=== PATIENT | male | born 1955 | race Caucasian/White ===

== ENCOUNTER 2021-07-29 14:08 | Outpatient (CLI) | payer MEDICARE, SELFPAY ==
--- NOTE | 2021-07-29 14:18 | CT_ITS ---
WS: [id number] CT CHEST WITH INTRAVENOUS CONTRAST HISTORY: ATRIAL FIBRILLATION/CHEST PAIN TECHNIQUE: Contiguous 5 mm axial imaging performed on the thorax. Coronal and sagittal reformats are submitted. All CT scans at [facility] use at least one of these dose optimization techniques: automated exposure control; mA and/or kV adjustment per patient size (includes targeted exams where dose is matched to clinical indication); or iterative reconstruction. CONTRAST: Omnipaque 300; 95 mL IV. DLP: 807.29 mGy.cm COMPARISON: 09/17/2017 Lungs and central airway: Lungs are hyperexpanded. Mild interstitial thickening in the periphery of b oth lungs. There are a few scattered pulmonary nodules. These nodules range in size from 2 to 5 mm. L argest in the periphery of the LEFT upper lobe, image 29 of series 4. Pleura: Normal. No pleural effusion. Heart and pericardium: Mildly enlarged LEFT heart chambers. No pericardial effusion. Mediastinum and eros: RIGHT hilar lymph node measures 13 mm. No change since 2018. Vessels: Mild atherosclerosis of aorta. Normal size pulmonary artery. Chest wall and lower neck: No soft tissue masses. Upper abdomen: Large hiatal hernia. Marked atrophy and nodularity involving the superior aspect of ea ch kidney. There is cortical thinning with multiple small acquired cysts. No adrenal mass. Low-attenu ation nodules in the RIGHT lobe of the liver. This are probably cysts. Cannot be further characterize d. Gallbladder is very slightly contracted. Osseous structures: Moderate thoracic spondylitic changes. No fractures or destructive bone lesions. CT/CT chest w con* [id number] IMPRESSION: 1. Chronic emphysema with numerous subcentimeter nodules throughout both lungs . Recommend follow-up chest CT in 3 months to evaluate for stability. Majority of these nodules are new since 2018. 2. No adenopathy. 3. Mild LEFT heart enlargement. 4. Large hiatal hernia. 5. Marked cortical thinning and small cortical cysts upper poles of each destiny wray.
[2021-07-29 15:16] LABS: Blood Urea Nitrogen 14 mg/dL (8-23); Glomerular Filtration Rate 60.8 mL/min (90-130)
[2021-07-29] MEDS: iohexol 300 mg/mL 100 mL Btl IV (15:17)
== END 2021-07-29 14:09 | disposition home or self-care (01) ==
PROVIDERS: PCP Internal Medicine; Visit Provider Nurse Practitioner
DX: R06.00 Dyspnea, unspecified (principal); I48.91 Unspecified atrial fibrillation; J43.9 Emphysema, unspecified; R91.8 Other nonspecific abnormal finding of lung field; I51.7 Cardiomegaly; K44.9 Diaphragmatic hernia without obstruction or gangrene; Q61.02 Congenital multiple renal cysts
CPT/HCPCS: 71260; 82565; 84520

== ENCOUNTER 2021-07-29 20:00 | Outpatient (CLI) | payer MEDICARE, SELFPAY | END 2021-07-29 20:01 | disposition home or self-care (01) | LOC: SLEEP 07-30 06:52 | PROVIDERS: PCP Internal Medicine; Visit Provider Nurse Practitioner | DX: R40.0 Somnolence (principal); R06.83 Snoring; R53.83 Other fatigue | CPT/HCPCS: 95810 ==

== ENCOUNTER → 2021-08-14 13:38 | Outpatient (BNVA) | payer MEDICARE, SELFPAY | PROVIDERS: PCP Internal Medicine; Visit Provider Internal Medicine Critical Care Medicine | DX: I26.99 Other pulmonary embolism without acute cor pulmonale (principal); J43.9 Emphysema, unspecified; F17.210 Nicotine dependence, cigarettes, uncomplicated; R91.1 Solitary pulmonary nodule; K21.9 Gastro-esophageal reflux disease without esophagitis; I10 Essential (primary) hypertension; R05.3 Chronic cough | CPT/HCPCS: 99204 ==

== ENCOUNTER → 2021-09-03 13:26 | Outpatient (BNVA) | payer MEDICARE, SELFPAY | PROVIDERS: PCP Internal Medicine; Visit Provider Internal Medicine | DX: I10 Essential (primary) hypertension (principal); I48.91 Unspecified atrial fibrillation; J43.9 Emphysema, unspecified; K21.9 Gastro-esophageal reflux disease without esophagitis; I26.09 Other pulmonary embolism with acute cor pulmonale; Z79.01 Long term (current) use of anticoagulants; F17.210 Nicotine dependence, cigarettes, uncomplicated | CPT/HCPCS: 99204 ==

== ENCOUNTER → 2021-11-03 12:15 | Outpatient (BNVA) | payer MEDICARE, SELFPAY | PROVIDERS: PCP Internal Medicine; Visit Provider Internal Medicine Critical Care Medicine | DX: R91.1 Solitary pulmonary nodule (principal); I26.99 Other pulmonary embolism without acute cor pulmonale; J43.9 Emphysema, unspecified; F17.210 Nicotine dependence, cigarettes, uncomplicated | CPT/HCPCS: 99214 ==

== ENCOUNTER 2021-12-03 12:31 | Outpatient (CLI) | payer MEDICARE, SELFPAY ==
--- NOTE | 2021-12-03 13:30 | CT_ITS ---
WS: [id number] CT CHEST WITHOUT INTRAVENOUS CONTRAST HISTORY: Pulmonary nodule TECHNIQUE: Contiguous 5 mm axial imaging performed on the thorax. Coronal and sagittal reformats are submitted. All CT scans at [facility] use at least one of these dose optimization techniques: automated exposure control; mA and/or kV adjustment per patient size (includes targeted exams where dose is matched to clinical indication); or iterative reconstruction. CONTRAST: None DLP: 774.91 mGy.cm COMPARISON: 07/29/2021 and 06/19/2016 Lungs and central airway: The largest nodule in the LEFT lower lobe has resolved. There is a smaller nodule near the LEFT fissure which is unchanged measuring 3 mm. Small nodules noted in the RIGHT uppe r lobe on the prior study are not apparent today. No new or increasing size of any nodule. There is m ild peripheral interstitial thickening which is stable. Chronic emphysema. Pleura: Normal. No pleural effusion. Heart and pericardium: Mild cardiomegaly. No pericardial effusion. Coronary artery calcifications. Mediastinum and eros: Small mediastinal and hilar lymph nodes. Numerous lymph nodes without increase in size. Vessels: No aneurysm. Mild atherosclerosis aorta. Pulmonary artery size is normal. Scattered coronary artery calcifications. Chest wall and lower neck: No soft tissue masses. Upper abdomen: Large hiatal hernia. Mild perinephric stranding. No adrenal mass. 11 mm low-attenuatio n lesion in the posterior RIGHT lobe of the liver is stable. Osseous structures: Thoracic spondylosis. CT/CT chest wo con [id number] IMPRESSION: 1. Several of the previously described pulmonary subcentimeter nodules have re solved. The remaining nodules are stable since 2018. No pneumonia. These were p robably postinflammatory nodules seen on the prior study. 2. Large hiatal hernia. 3. No adenopathy.
== END 2021-12-03 12:32 | disposition home or self-care (01) ==
PROVIDERS: PCP Internal Medicine; Visit Provider Internal Medicine Critical Care Medicine
DX: R91.1 Solitary pulmonary nodule (principal); K44.9 Diaphragmatic hernia without obstruction or gangrene
CPT/HCPCS: 71250

== ENCOUNTER 2021-12-03 12:32 | Outpatient (CLI) | payer MEDICARE, SELFPAY ==
--- NOTE | 2021-12-03 12:45 | USCV_ITS ---
Mohit Mitchell Age: 66 Gender: M : 1955 Exam Date: 12/03/2021 13:17 Ordering Phys: Nasir Krueger M.D ([email or web address]) Technologist: Krys Sears Exam Location: [facility] Indication: Afib BP: / HR: 63 Rhythm: Sinus Technical Quality: Adequate MEASUREMENTS (Male / Female) Normal Values 2D ECHO LV Diastolic Diameter PLAX 4.0 cm 4.2 - 5.9 / 3.9 - 5.3 cm LV Systolic Diameter PLAX 2.9 cm LV Chamber Size 3.6 cm IVS Diastolic Thickness 1.3 cm 0.6 - 1.0 / 0.6 - 0.9 cm IVS Systolic Thickness 1.6 cm LVPW Diastolic Thickness 1.4 cm 0.6 - 1.0 / 0.6 - 0.9 cm LVPW Systolic Thickness 1.7 cm RV Chamber Size 3.7 cm LVOT Diameter 2.1 cm LV Ejection Fraction 2D Teich 51.7 % LV Ejection Fraction MOD 2C 50.0 % LV Ejection Fraction 2C AL 50.2 % LA Diameter 4.0 cm LA Width 3.6 cm LA Height 5.4 cm RA Width 3.9 cm RA Height 4.7 cm Aorta at Sinotubular Diameter 3.2 cm IVC Diameter 2.2 cm M-MODE Aortic Annulus Diameter 3.7 cm LA Ao Ratio MM 1.4 MV E Point Septal Separation 0.5 cm DOPPLER AV Peak Velocity 141.7 cm/s LVOT Peak Velocity 97.0 cm/s AV Area Cont Eq vti 2.4 cm squared AV Area Cont Eq pk 2.3 cm squared MV Area PHT 3.2 cm squared Mitral E to A Ratio 0.9 MV E' Velocity 51.5 cm/s Mitral E to MV E' Ratio 12.1 Mitral E to LV E' Lateral Ratio 11.0 Mitral E to LV E' Septal Ratio 13.6 TR Peak Velocity 264.9 cm/s TR Peak Gradient 28.1 mmHg TR Mean Velocity 237.3 cm/s TR Mean Gradient 23.1 mmHg TR Velocity Time Integral 89.0 cm TV Peak E Velocity 54.0 cm/s Right Atrial Pressure 3.0 mmHg Pulmonary Artery Systolic Pressu 31.1 mmHg PV Peak Velocity 74.0 cm/s RV Acceleration Time 0.1 s RV Ejection Time 0.4 s RV AcT/ET 0.3 FINDINGS Left Ventricle Left ventricle is normal in size. LV systolic function is normal with EF of 55 to 60%. No regional wall motion abnormalities are seen. Moderate left ventricular hypertrophy. Grade 1 diastolic dysfunction seen. Right Ventricle Normal in size and function. Right Atrium Normal in size Left Atrium Left atrium is dilated. Mitral Valve Mild mitral annular calcification. Mild mitral regurgitation. Aortic Valve Aortic valve is thickened. Mild aortic regurgitation. No significant stenosis. Tricuspid Valve Mild tricuspid regurgitation. Insufficient TR jet to calculate RVSP. Pulmonic Valve Not well-visualized Pericardium Normal Aorta Normal in size IVC CONCLUSIONS LV systolic function is normal with EF 55 to 60%. Moderate left ventricular hypertrophy. Grade 1 diastolic dysfunction Mild mitral annular calcification seen. Mild mitral regurgitation. Aortic valve is thickened. Mild aortic regurgitation. Mild tricuspid regurgitation. Compared to prior echocardiogram from 09/18/2017, no significant change is seen Nasir Krueger MD (Electronically Signed) Final Date: 13 December 2021 21:18 S
== END 2021-12-03 12:33 | disposition home or self-care (01) ==
PROVIDERS: PCP Internal Medicine; Visit Provider Internal Medicine
DX: R06.00 Dyspnea, unspecified (principal); I48.91 Unspecified atrial fibrillation; I08.3 Combined rheumatic disorders of mitral, aortic and tricuspid valves; R91.1 Solitary pulmonary nodule; K44.9 Diaphragmatic hernia without obstruction or gangrene
CPT/HCPCS: 71250; 93306

== ENCOUNTER 2021-12-10 08:53 | Outpatient (CLI) | payer MEDICARE, SELFPAY ==
--- NOTE | 2021-12-10 12:47 | PFTS_ITS ---
Date of Study:12/10/21 Date of Dictation: MECHANICS: Forced vital capacity (FVC) is normal. Forced expiratory volume in one second (FEV1) is reduced. FEV1/FVC is normal. FLOW VOLUME LOOP: Reduced flow at all lung volumes with mild scooping. LUNG VOLUMES: Total lung capacity (TLC) is normal. Residual volume (RV) is increased. DIFFUSING CAPACITY FOR CARBON MONOXIDE: Mild reduced. INTERPRETATION: The postbronchodilator spirometry is likely consistent with mild airflow obstruction. Although, the FEV1 FVC ratio is preserved. The flow-volume loop is suggestive of small airways disease. Lung volumes are consistent with air trapping. Gas exchange (DLCO) is mildly reduced. MTDD
== END 2021-12-10 08:54 | disposition home or self-care (01) ==
LOC: RT 08:54
PROVIDERS: PCP Internal Medicine; Visit Provider Internal Medicine Critical Care Medicine
DX: J43.9 Emphysema, unspecified (principal)
CPT/HCPCS: 94060; 94726; 94729; J7611

== ENCOUNTER → 2022-05-18 10:17 | Outpatient (BNVA) | payer MEDICARE, SELFPAY | PROVIDERS: PCP Nurse Practitioner Family; Visit Provider Nurse Practitioner Family | DX: I10 Essential (primary) hypertension (principal) | CPT/HCPCS: 80048 ==

== ENCOUNTER → 2023-03-11 17:15 | Outpatient (BNVA) | payer MEDICARE, SELFPAY | PROVIDERS: PCP Nurse Practitioner Family; Visit Provider Nurse Practitioner Family | DX: I10 Essential (primary) hypertension (principal) | CPT/HCPCS: 80053; 80061; 84443; 85025 ==

== ENCOUNTER → 2023-09-14 14:43 | Outpatient (BNVA) | payer MEDICARE, SELFPAY | PROVIDERS: PCP Nurse Practitioner Family; Visit Provider Nurse Practitioner Family | DX: R10.9 Unspecified abdominal pain (principal) | CPT/HCPCS: 81000 ==

== ENCOUNTER 2023-09-16 15:34 | Outpatient (CLI) | payer MEDICARE, SELFPAY ==
--- NOTE | 2023-09-16 15:36 | XR_ITS ---
WS: [id number] KUB, AP view, 09/16/2023 Clinical Data: R10.9 - Unspecified abdominal pain Comparison: Acute abdomen series, 08/24/2015 Findings: No abnormal intraabdominal masses or calcifications are seen. There is no dilatated small bowel or ev idence of obstruction. There is a moderate amount of fecal material in the colon. There is degenerative change of the lumbar vertebral bodies. XR/XR abdomen 1V* [id number] Impression: Moderate amount of fecal material in the colon.
== END 2023-09-16 15:35 | disposition home or self-care (01) ==
LOC: RAD 15:35
PROVIDERS: PCP Nurse Practitioner Family; Visit Provider Nurse Practitioner Family
DX: R10.9 Unspecified abdominal pain (principal); M47.816 Spondylosis without myelopathy or radiculopathy, lumbar region
CPT/HCPCS: 74018

== ENCOUNTER → 2023-12-24 15:19 | Outpatient (BNVA) | payer MEDICARE, SELFPAY | PROVIDERS: PCP Nurse Practitioner Family; Visit Provider Nurse Practitioner Family | DX: R68.89 Other general symptoms and signs (principal) | CPT/HCPCS: 87426 ==

== ENCOUNTER → 2024-04-10 10:00 | Outpatient (BNVA) | payer MEDICARE, SELFPAY | PROVIDERS: PCP Nurse Practitioner Family; Visit Provider Nurse Practitioner Family | DX: I10 Essential (primary) hypertension | CPT/HCPCS: 80053; 80061 ==

== ENCOUNTER 2024-04-24 10:09 | Outpatient (CLI) | payer MEDICARE, SELFPAY ==
--- NOTE | 2024-04-24 10:00 | CT_ITS ---
WS: [id number] LDCT LUNG CANCER SCREENING HISTORY: Z87.891 - Personal history of nicotine dependence TECHNIQUE: Axial imaging performed from the apices to 1 cm below the costophrenic angles. Coronal and sagittal reformats are submitted with axial MIP series. All CT scans at [facility] use at least one of these dose optimization techniques: automated exposure control; mA and/or kV adjustment per patient size (includes targeted exams where dose is matched to clinical indication); or iterativ e reconstruction. DLP: 82.71 mGy.cm DIvol: Mean CTDIvol: 1.70 (mGy) COMPARISON: 07/29/2021, 12/03/2021 Diagnostic quality: Satisfactory Lungs: Hyperinflated lungs with emphysema. Numerous new, bilateral and multilobar nodules and reticul ar nodular opacifications are identified. The largest reticular nodular opacification RIGHT lower lob e. Branching of the opacification may indicate bronchial involvement. This may be an area of pneumoni a or pneumonitis. Additional scattered subcentimeter nodules and subsolid nodules in the periphery of the upper and lower lung fry. No endobronchial lesions. Heart: Normal size heart with no pericardial effusion.. Other findings: Heavy calcification in the [place] coronary arteries. Mild atherosclerosis aorta. RIGH T paratracheal lymph node measures 14 mm and has slightly increased in size. Large hiatal hernia. 8 m m low-attenuation nodule in the RIGHT lobe of the liver. No adrenal mass. CT/CT lung screening [id number] IMPRESSION: LUNG-RADS: 4A-Probably Suspicious FOLLOW UP: 3 Month LDCT OTHER FINDINGS (S MODIFIER): None. Multiple new nodules with a reticular nodular opacification in the RIGHT lower lobe. This reticular nodular opacification may be pneumonia or pneumonitis. Rec ommend 3-month follow-up after appropriate treatment.
== END 2024-04-24 10:10 | disposition home or self-care (01) ==
LOC: RAD 10:10
PROVIDERS: PCP Nurse Practitioner Family; Visit Provider Nurse Practitioner Family
DX: Z12.2 Encounter for screening for malignant neoplasm of respiratory organs (principal); Z87.891 Personal history of nicotine dependence; R91.8 Other nonspecific abnormal finding of lung field; J43.9 Emphysema, unspecified; I25.10 Atherosclerotic heart disease of native coronary artery without angina pectoris; I70.0 Atherosclerosis of aorta; K44.9 Diaphragmatic hernia without obstruction or gangrene; R59.0 Localized enlarged lymph nodes
CPT/HCPCS: 71271

== ENCOUNTER → 2024-06-06 11:26 | Outpatient (BNVA) | payer MEDICARE, SELFPAY | PROVIDERS: PCP Nurse Practitioner Family; Visit Provider Anesthesiology Pain Medicine | DX: G89.29 Other chronic pain (principal); M47.816 Spondylosis without myelopathy or radiculopathy, lumbar region; M54.41 Lumbago with sciatica, right side | CPT/HCPCS: 72110; 99204 ==

== ENCOUNTER → 2024-06-21 14:02 | Outpatient (BNVA) | payer MEDICARE, SELFPAY | PROVIDERS: PCP Nurse Practitioner Family; Visit Provider Anesthesiology Pain Medicine | DX: M47.816 Spondylosis without myelopathy or radiculopathy, lumbar region (principal); M54.41 Lumbago with sciatica, right side; G89.29 Other chronic pain; M54.9 Dorsalgia, unspecified | CPT/HCPCS: 64493; 64494; 64495; J3490 ==

== ENCOUNTER → 2024-06-27 08:29 | Outpatient (BNVA) | payer MEDICARE, SELFPAY | PROVIDERS: PCP Nurse Practitioner Family; Visit Provider Nurse Practitioner Family | DX: M54.41 Lumbago with sciatica, right side (principal); G89.29 Other chronic pain; M47.816 Spondylosis without myelopathy or radiculopathy, lumbar region; Z87.891 Personal history of nicotine dependence | CPT/HCPCS: 99213 ==

== ENCOUNTER → 2024-07-18 13:26 | Outpatient (BNVA) | payer MEDICARE, SELFPAY | PROVIDERS: PCP Nurse Practitioner Family; Visit Provider Anesthesiology Pain Medicine | DX: M47.816 Spondylosis without myelopathy or radiculopathy, lumbar region (principal); M54.9 Dorsalgia, unspecified; M54.41 Lumbago with sciatica, right side; G89.29 Other chronic pain; Z87.891 Personal history of nicotine dependence | CPT/HCPCS: 64635; 64636; J1010; J9999 ==

== ENCOUNTER 2024-07-25 15:52 | Outpatient (CLI) | payer MEDICARE, SELFPAY ==
--- NOTE | 2024-07-25 15:45 | CT_ITS ---
WS: [id number] CT chest w con* [id number] HISTORY: R91.1 - Solitary pulmonary nodule TECHNIQUE: Axial imaging performed through the thorax. Coronal and sagittal reformats are submitted. All CT scans at [facility] use at least one of these dose optimization techniques: automated exposure control; mA and/or kV adjustment per patient size (includes targeted exams where dose is matched to clinical indication); or iterative reconstruction. CONTRAST: Omnipaque 350; 100 mL IV. DLP: 536.77 mGy.cm COMPARISON: 04/24/2024, 12/03/2021 Lungs and central airway: Pulmonary hyperexpansion. Mild peripheral interstitial thickening. Much improved aeration. Previously described reticular nodular opacifications and subsegmental consolidations have resolved. There is a benign calcified granuloma RIGHT lower lobe. Pleura: Normal. No pleural effusion. Heart and pericardium: Enlarged LEFT heart. Most significant enlargement of the LEFT atrium. Mediastinum and eros: Mildly prominent RIGHT hilar lymph node at 1.3 cm. Inferior RIGHT paratracheal lymph node is 1.1 cm. Lymph nodes have decreased in size since 04/24/2024. Vessels: Mild atherosclerosis aorta. No aneurysm. Normal size pulmonary artery. Chest wall and lower neck: No soft tissue masses. Upper abdomen: Large hiatal hernia. No adrenal mass. 11 mm low-attenuation nodule in the posterior RIGHT lobe of the liver. Stable since 04/24/2024. This may be a small cyst. Cortical thinning of the upper pole of each kidney with small acquired cortical cysts. Osseous structures: Mild thoracic spondylosis. CT/CT chest w con* [id number] IMPRESSION: 1. Interval resolution of the previously described reticular nodular opacifica tions seen on chest CT of 04/24/2024. No residual opacifications or suspicious mass/nodule. 2. A few small indeterminate lymph nodes persist but have decreased in size. 3. Chronic emphysema. 4. LEFT heart enlargement, most significant enlargement within the LEFT atrium . 5. Return to annual lung screening CT evaluation.
[2024-07-25 16:24] LABS: Blood Urea Nitrogen 15 mg/dL (8-23); Glomerular Filtration Rate 50.4 mL/min (90-130)
[2024-07-25] MEDS: iohexol 350 mg/mL 500 mL Btl (per mL) IV (16:39)
== END 2024-07-25 15:53 | disposition home or self-care (01) ==
PROVIDERS: PCP Nurse Practitioner Family; Visit Provider Nurse Practitioner Family
DX: R91.1 Solitary pulmonary nodule (principal); R59.0 Localized enlarged lymph nodes; J43.8 Other emphysema; I51.7 Cardiomegaly; R91.8 Other nonspecific abnormal finding of lung field; J84.10 Pulmonary fibrosis, unspecified; I70.0 Atherosclerosis of aorta; K44.9 Diaphragmatic hernia without obstruction or gangrene; R93.2 Abnormal findings on diagnostic imaging of liver and biliary tract; R93.421 Abnormal radiologic findings on diagnostic imaging of right kidney; R93.422 Abnormal radiologic findings on diagnostic imaging of left kidney; N28.1 Cyst of kidney, acquired
CPT/HCPCS: 71260; 82565; 84520

== ENCOUNTER → 2024-08-01 13:03 | Outpatient (BNVA) | payer MEDICARE, SELFPAY | PROVIDERS: PCP Nurse Practitioner Family; Visit Provider Anesthesiology Pain Medicine | DX: M47.816 Spondylosis without myelopathy or radiculopathy, lumbar region (principal); M54.9 Dorsalgia, unspecified; M54.31 Sciatica, right side; G89.29 Other chronic pain | CPT/HCPCS: 64635; 64636; J1010; J9999 ==

== ENCOUNTER → 2024-08-15 09:07 | Outpatient (BNVA) | payer MEDICARE, SELFPAY | PROVIDERS: PCP Nurse Practitioner Family; Visit Provider Nurse Practitioner Family | DX: M54.41 Lumbago with sciatica, right side (principal); G89.29 Other chronic pain; M47.816 Spondylosis without myelopathy or radiculopathy, lumbar region | CPT/HCPCS: 99213 ==

== ENCOUNTER → 2024-09-26 14:55 | Outpatient (BNVA) | payer MEDICARE, SELFPAY | PROVIDERS: PCP Nurse Practitioner Family; Visit Provider Nurse Practitioner Family | DX: M54.41 Lumbago with sciatica, right side (principal); G89.29 Other chronic pain; M47.816 Spondylosis without myelopathy or radiculopathy, lumbar region | CPT/HCPCS: 72072; 99214 ==

== ENCOUNTER → 2024-10-24 10:50 | Outpatient (BNVA) | payer MEDICARE, SELFPAY | PROVIDERS: PCP Nurse Practitioner Family; Visit Provider Nurse Practitioner Family | DX: M54.41 Lumbago with sciatica, right side (principal); G89.29 Other chronic pain; M47.816 Spondylosis without myelopathy or radiculopathy, lumbar region | CPT/HCPCS: 99214 ==

== ENCOUNTER 2024-10-30 11:09 | Emergency (ER) | payer MEDICARE, SELFPAY ==
--- OUTSIDE RECORDS SUMMARY | 2024-02-19 04:00 | XMS_ITS ---
Author Organization [facility] Address [address] [place] [address] Care Team Providers Care Sales Associate Fishing Name Role Phone Ekaterina Bird APRN Primary Care Provider Unavail able Sandrine Sanchez Unavailable [phone] MOMO WHEELER Unavailable Migration, Provider Unavailable Unavailable REASON FOR VISIT EMR-Yohannes Encounters Encounter Location Date Provider Diagnosis Migrated_Facility 0 0 02/19/2024 Provider Migration Plan Of Treatment Next Appt Details Provider Name:Momo Wheeler , 12/18/2024 09:45:00 AM, [address] [place] [address], [address], Progress Notes * Mohit MITCHELL LDOB:1955 (69 yo M)Acc No.[id number]:02/19/2024 Patient: Husam FITCHMohit :1955 A ge:68 Y S ex:Male Address:[address] [place] [id number] Subjective: * Chief Complaints: * E MR-Yohannes * Medical History: * Surgical History: * Hospitalization/Major Diagno stic Procedure: * Medications: Objective: * Vitals: * Physical Examination: Assessment: Plan: * Treatment: * Procedure Codes: * * Date:
--- OUTSIDE RECORDS SUMMARY | 2024-02-20 04:00 | XMS_ITS ---
Author Organization [facility] Address [address] [place] [address] Care Team Providers Care Rebeamer Name Role Phone Ekaterina Bird APRN Primary Care Provider Unavail able Sandrine Sanchez Unavailable [phone] MOMO WHEELER Unavailable Unavailable Migration, Provider Unavailable Unavailable Allergies Allergen (clinical drug ingredient) Drug/Non Drug Allergy documented on EMR Reaction Allergy Type Onset Date Status morphine Morphine Nightmares Drug Allergy Active REASON FOR VISIT EMR-Yohannes Medications Medication SIG (Take, Route, Frequency, Duration) Notes Start Date End Date Status Metoprolol Tartrate *Pick streng th-form from [facility] for eRX* Active Losartan *Reorder from [facility] for eRx and Interaction Alerts* Active pantoprazole *Reorder from [facility] for eRx and Interaction Alerts* Active Eliquis *Pick strength-f orm from [facility] for eRX* Active trazodone *Reorder from [facility] for eRx and Interaction Alerts* Active Encounters Encounter Location Date Provider Diagnosis Migrated_Facility 0 0 02/20/2024 Provider Migration Plan Of Treatment Next Appt Details Provider Name:Momo Wheeler , 12/18/2024 09:45:00 AM, [address], [place], [address], Progress Notes * Mohit MITCHELL LDOB:1955 (69 yo M)Acc No.[id number]:02/20/2024 Patient: Husam FAITHMohit PEREZ :1955 A ge:68 Y S ex:Male Address:[address] [place] [phone] Subjective: * Chief Complaints: * E MR-Yohannes * Medical History: * Surgical History: S tent placement Since 2021 * Hospitalization/Major Diagno stic Procedure: * Family History: M igrated Family History: : chronic pain, H eart disease, H igh blood pressure. * Social History: M igrated Social History: M igrated Social History: Alcoholic beverages? - No, C urrently on disability? - Yes, D rug or substance abuse? - No, I nvolved in any legal proceedings or lawsuits? - No, M arital Status - , N onprescription drug use? - No, P articipation in detoxification or rehabilitation - No, S moked in the past? - Yes, S moking - No, S moking status (MU) - Former smoker, W orking currently? - Yes. * Medications: T akingtrazodone , Notes to Pharmacist: *Reorder from [facility] for eRx and Interaction Alerts*pantoprazole , Notes to Pharmacist: *Reorder from [facility] for eRx and Interaction Alerts*Losartan , Notes to Pharmacist: *Reorder from [facility] for eRx and Interaction Alerts*Eliquis , Notes to Pharmacist: *Pick strength-form from [facility] for eRX*Metoprolol Tartrate , Notes to Pharmacist: *Pick strength-form from [facility] for eRX*Taking trazodone , Notes to Pharmacist: *Reorder from [facility] for eRx and Interaction Alerts*Taking pantoprazole , Notes to Pharmacist: *Reorder from [facility] for eRx and Interaction Alerts*Taking Losartan , Notes to Pharmacist: *Reorder from [facility] for eRx and Interaction Alerts*Taking Eliquis , Notes to Pharmacist: *Pick strength-form from [facility] for eRX*Taking Metoprolol Tartrate , Notes to Pharmacist: *Pick strength-form from [facility] for eRX* * Allergies: M orphine: Nightmares - Allergy Objective: * Vitals: * Physical Examination: Assessment: Plan: * Treatment: * Procedure Codes: * * Date:
--- NOTE | 2024-10-30 11:10 | XR_ITS ---
WS: [id number] Exam: XR chest 1V portable [id number] Date/Time of Exam: 10/30/2024 11:36 AM Reason For Exam: cp Comparison 09/17/2017. Lungs are clear and fully expanded. Heart size top limits normal. The mediastinum is normal in contour. Large hiatal hernia. No pleural effusion. Normal bony structures. XR/XR chest 1V portable [id number] IMPRESSION: 1. No acute cardiopulmonary finding. Prominent hiatal hernia.
[2024-10-30 11:15] VITALS: BP 132/68; PULSE 57; TEMP 36.4; O2SAT 100
--- NOTE | 2024-10-30 11:17 | ECG_ITS ---
[facility] Test Date: 2024-10-30 Pat Name: Mohit Mitchell Department: Room: Gender: Male [employer]ary [employer] Tanner: : 1955 Requested By: Radhika Billingsley Order Number: [id number] Lexie MD: Nasir Krueger M.D. Measurements Intervals [place] Rate: 58 P: 100 MA: 178 QRS: 74 QRSD: 91 T: 63 QT: 414 QTc: 407 Interpretive Statements SINUS BRADYCARDIA Compared to ECG 09/18/2017 03:59:04 Sinus rhythm no longer present Electronically Signed On 10-31-2024 08:22:06 CDT by Nasir Krueger M.D. [email or web address]
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
[2024-10-30 12:02] LABS: Hematocrit 30.6 % (37-53); Hemoglobin 8.60 g/dL (11.27-16.99); Mean Corpuscular HGB Conc 28.1 g/dL (30-55); Mean Corpuscular Hemoglobin 20.4 pg (27-33); Mean Corpuscular Volume 72.7 fl (82-101); Nucleated Red Blood Cells % 0 %; Platelet Count 213 10^3/cmm (157-399); Red Blood Count 4.21 10^6/uL (3.85-5.65); White Blood Count 5.32 10^3/uL (3.29-11.43)
[2024-10-30 12:07] LABS: Slide Review Slide Review Perform
[2024-10-30 12:12] LABS: INR 1.16 (0.8-1.2); Prothrombin Time 15.60 SECONDS (12.1-14.9)
[2024-10-30 12:19] LABS: Alanine Aminotransferase 8 U/L (0-41); Albumin Level 4.0 g/dL (3.5-5.2); Alkaline Phosphatase 74 U/L (40-130); Anion Gap 16.8 (5-19); Aspartate Amino Transferase 18 U/L (0-40); Blood Urea Nitrogen 14 mg/dL (8-23); Calcium 9.0 mg/dL (8.5-10.5); Carbon Dioxide 22 mmol/L (22-29); Chloride 103 mmol/L (98-107); Creatinine Clr Calc Pharmacy 58.5011; Globulin 3.1 g/dL (1.3-4.6); Glucose 82 mg/dL (65-115); Lipase 23 U/L (13-60); Osmolality Calculated 286 mOsm/kg (285-295); Potassium 3.8 mmol/L (3.5-5.1); Sodium 138 mmol/L (136-145); Total Protein 7.1 g/dL (6.6-8.7)
[2024-10-30 12:20] LABS: Troponin(5th) Baseline 21 ng/L (0-15)
[2024-10-30 14:02] LABS: Troponin 5 2HR 22.75 ng/L (0-15); Troponin 5 2HR Delta 1.75 ABS# (0-10)
== END 2024-10-30 15:20 | disposition left against medical advice (07) ==
PROVIDERS: Emergency Medicine; Emergency Provider Family Medicine; PCP Nurse Practitioner Family
DX: Z01.89 Encounter for other specified special examinations (principal); Z53.21 Procedure and treatment not carried out due to patient leaving prior to being seen by health care provider; R07.9 Chest pain, unspecified; K44.9 Diaphragmatic hernia without obstruction or gangrene; R00.1 Bradycardia, unspecified
CPT/HCPCS: 36415; 71045; 80053; 83690; 84484; 85025; 85610; 93005

== ENCOUNTER → 2024-11-10 14:34 | Outpatient (BNVA) | payer MEDICARE, SELFPAY | PROVIDERS: PCP Nurse Practitioner Family; Visit Provider Nurse Practitioner Family | DX: I51.7 Cardiomegaly (principal); K44.9 Diaphragmatic hernia without obstruction or gangrene | CPT/HCPCS: 71046 ==

== ENCOUNTER → 2025-01-24 10:16 | Outpatient (BNVA) | payer MEDICARE, SELFPAY | PROVIDERS: PCP Nurse Practitioner Family; Visit Provider Nurse Practitioner Family | DX: M47.816 Spondylosis without myelopathy or radiculopathy, lumbar region (principal); G89.29 Other chronic pain | CPT/HCPCS: 99214 ==

== ENCOUNTER → 2025-03-07 09:00 | Outpatient (BNVA) | payer MEDICARE, SELFPAY | PROVIDERS: PCP Nurse Practitioner Family; Visit Provider Nurse Practitioner Family | DX: I10 Essential (primary) hypertension (principal) | CPT/HCPCS: 80053; 80061; 85025 ==

== ENCOUNTER → 2025-03-14 09:40 | Outpatient (BNVA) | payer MEDICARE, SELFPAY | PROVIDERS: PCP Nurse Practitioner Family; Visit Provider Nurse Practitioner Family | DX: D64.9 Anemia, unspecified (principal) | CPT/HCPCS: 85025 ==

== ENCOUNTER → 2025-03-27 10:54 | Outpatient (BNVA) | payer MEDICARE, SELFPAY | PROVIDERS: PCP Nurse Practitioner Family; Visit Provider Nurse Practitioner Family | DX: U07.1 COVID-19 (principal); D64.9 Anemia, unspecified | CPT/HCPCS: 82728; 82746; 83550; 85025; 85045 ==